=== PATIENT | female | born 1960 | race Hispanic/Latino ===

== ENCOUNTER → 2020-08-07 | Outpatient (CLI) | payer BC ==
[~2020-08-07] MED LIST: GINKGO BILOBA40 M1 PO; OMEGA 3 1,0001 EACH PO; PRAVACHOL40 MG PO; RESTASIS1 EACH OP; VIT D PO
== END ==
LOC: US 09:50
PROVIDERS: ATTEND Family Medicine
DX: R13.10 Dysphagia, unspecified (principal); R10.13 Epigastric pain
CPT/HCPCS: 74220; 76700